=== PATIENT | male | born 1950 | race Caucasian/White ===

== ENCOUNTER 2017-06-29 08:23 | Day surgery (SDC) | payer BC ==
--- NOTE | 2017-06-27 16:47 | EKG ---
Test Date: 2017-06-27 Test Time: 16:29:41 [employer] Operator: VALENCIA MEASUREMENT RESULTS: Intervals: Rate: 54 CT: 156 QRSD: 98 QT: 396 QTc: 375 [place]: P: 25 CT: 156 QRS: -59 T: 50 INTERPRETIVE STATEMENTS: Sinus bradycardia Left axis deviation Abnormal ECG No previous ECG available for comparison Electronically Signed On 06-27-17 16:46:37 CDT by Young Valencia
[2017-06-27 18:13] LABS: BUN Blood Urea Nitrogen 16 mg/dL (6-20); Bicarbonate 32 mEq/L (21-31); Glucose Level 213 mg/dL (65-120); Potassium 4.4 mEq/L (3.6-5.0); Sodium Level 141 mEq/L (135-145)
[2017-06-29] MEDS ORDERED: Ringers Lactate 1,000 ML IV ONE (08:39)
[2017-06-29] MEDS ORDERED: CEFAZOLIN/SWI 1gm 1 GM/10 ML SYR ONE (08:39)
[2017-06-29] MEDS ORDERED: BUPIVACA 0.25%/EPI 0.0005%/PF 30 ML VIAL ONE (09:13)
[2017-06-29] MEDS ORDERED: PROPOFOL 200 MG/20 ML VIAL IV ONE ×2 (09:23→10:00)
[2017-06-29] MEDS ORDERED: MIDAZOLAM HCL 2 MG/2 ML INJ ONE (09:24)
[2017-06-29] MEDS ORDERED: LIDOCAINE 2% MPF 5 ML VIAL ONE (09:24)
[2017-06-29] MEDS ORDERED: FENTANYL CITR 100 MCG/2 ML ONE (09:24)
--- NOTE | 2017-06-29 10:45 | P.OP ---
Preoperative diagnosis: Temporal giant cell arteritis Postoperative diagnosis: Temporal giant cell arteritis Primary procedure: LEFT temporal artery biopsy Anesthesia: MAC + Local Estimated blood loss: <10cc Specimen: Temporal Artery Complications: None Transferred to: Recovery Room Condition: Good
--- NOTE | 2017-06-29 22:13 | OP ---
Date of Procedure: 06/29/2017 Surgeon: Kentrell Hahn MD, Preoperative Diagnosis: Temporal/giant cell arteritis. Postoperative Diagnosis: Temporal/giant cell arteritis. Procedure Performed: Left temporal artery biopsy. Anesthesia: MAC plus local with 0.25% Marcaine with epinephrine. Estimated Blood Loss: Less than 10 cc. Specimen: Left temporal artery. Complications: None. Disposition: Transferred to recovery room in good condition. Procedure In Detail: After informed consent was obtained, the patient was brought to the operating r oom, prepped and draped in the usual sterile fashion. After adequate anesthesia was achieved, the ar ea of the left temporal artery area was mapped with Doppler. Skin marking was made slightly into the hairline. An approximately 3.5 cm incision was made following the track of the temporal artery on t he left side. Dissection continued down to subcutaneous tissues. Skin flaps were performed to the t emporoparietal fascia. I dissected down using blunt dissection to expose the temporal artery. It wa s encircled completely after being skeletonized using Doppler to confirm position. There were no add itional accessory branches that needed to be ligated and therefore I encircled a portion of the tempo ral artery proximally and distally using a 3-0 silk tie. These segments were tied off ensuring adequ ate specimen length and after this was performed, I ligated the temporal artery using tenotomy scisso rs and sent the specimen for pathologic examination. I then irrigated the area copiously and then dr ied it up and after this was done, I inspected the area. No hemostatic maneuvers were required. I t hen closed the subcuticular layer using a single interrupted 3-0 Vicryl suture and closed the skin wi th a 4-0 Monocryl in a running fashion. Dermabond placed over the top. The patient tolerated the pr ocedure without evidence of complication and transferred to PACU in good condition. All counts were correct at the end of the case. RONEY/VINCE Voice ID: [id number] Report ID: [id number]
== END 2017-06-29 11:14 | disposition home or self-care (01) ==
LOC: OR 08:23
PROVIDERS: ATTEND Surgery
PROC: 03BT0ZX Excision of Left Temporal Artery, Open Approach, Diagnostic (ICD-10-PCS; principal; 2017-06-29 09:30)
DX: M31.6 Other giant cell arteritis (principal); I10 Essential (primary) hypertension; K21.9 Gastro-esophageal reflux disease without esophagitis; Z87.891 Personal history of nicotine dependence
CPT/HCPCS: 36415; 80048; 88305; 93005; J0690; J2250; J3010

== ENCOUNTER 2017-07-04 12:29 | Observation (INO) | payer BC, OTHER ==
[2017-07-04 13:58] LABS: Absolute Lymphocytes (CBC) 0.6 K/uL (0.7-4.9); Absolute Monocytes 0.3 K/uL (0.1-1.3); Absolute Neutrophil 7.8 K/uL (1.8-8.0); Basophils % 0.2 % (0-1.3); Hematocrit 38.1 % (39.6-49.0); Lymphocytes % 6.8 % (15.3-44.8); MCH 28.2 pg (27.0-35.0); MCV 85.5 fL (80-100); MPV 7.2 fL (7.6-11.3); Protime INR 1.4; RBC Red Blood Cell Count 4.46 M/uL (4.33-5.43)
[2017-07-04 14:06] LABS: Bicarbonate 30 mEq/L (21-31); Glucose Level 191 mg/dL (65-120); Potassium 4.3 mEq/L (3.6-5.0); Sodium Level 138 mEq/L (135-145)
[2017-07-04 14:07] LABS: BUN Blood Urea Nitrogen 10 mg/dL (6-20)
[2017-07-04 14:39] LABS: Blood Morphology Comment NOT SEEN (NOT SEEN); Platelet Estimate ADEQ
--- NOTE | 2017-07-04 15:07 | RAD REPORT ---
EXAM DESCRIPTION: CT - Thorax W/ Con - 07/04/2017 2:37 pm CLINICAL HISTORY: Hemoptysis COMPARISON: None. TECHNIQUE: Dynamically enhanced 5 mm thick images of the chest were obtained during administration o f 100 mL non-ionic IV contrast. All CT scans are performed using dose optimization technique as appropriate and may include automated exposure control or mA/KV adjustment according to patient size. FINDINGS: Extending inferiorly from the left hilum in the posteromedial left lower lobe there is a 4 .5 centimeter lobulated soft tissue mass. Primary lung malignancy is the most likely etiology. There is stranding that extends to the medial and posterior pleural surface. The mass displaces and partial ly encircles the inferior pulmonary vein. Small lymph nodes are seen in the left hilum. Small subcari nal lymph nodes seen as well. No other mass in the lung parenchyma. No bulky lymphadenopathy. No pleural thickening or pleural effu bryan. No pneumothorax. No chest wall mass or abnormal axillary lymphadenopathy. Aorta and pulmonary arterial tree enhance normally. No pericardial effusion. IMPRESSION: Approximately 4.5 centimeter lobulated soft tissue mass infrahilar left lower lobe. Primary lung malignancy is the most likely etiology. A few small subcarinal and left hilar lymph nodes are present nonspecific.
--- NOTE | 2017-07-04 15:38 | ER ---
Nurse's Notes [facility] Name: Linnette Styles Age: 67 yrs Sex: Male : 1950 Arrival Date: 07/04/2017 Time: 12:32 Bed 16 Private MD: Yvan Wayne Diagnosis: Hemoptysis-lung mass Presentation: 07/04 12:43 Presenting complaint: Patient states: coughed up a solid red blood clot about an hour iw ago, coughed up another small amount of blood within past hour, is on Pradaxa, has had cough with congestion and has been feeling like his voice has changed over past month and half, made appt with ENT. Transition of care: patient was not received from another setting of care. Onset of symptoms was July 04, 2017. Initial Sepsis Screen: Does the patient meet any 2 criteria? No. Patient's initial sepsis screen is negative. Does the patient have a suspected source of infection? No. Patient's initial sepsis screen is negative. Care prior to arrival: None. 12:43 Method Of Arrival: Ambulatory iw 12:43 Acuity: DEANGELO 3 iw Historical: - Allergies: 12:49 NKA; iw - Home Meds: 12:49 metoprolol tartrate 100 mg Oral tab 1 tab once daily [Active]; clonazepam 0.5 mg Oral iw tab as needed [Active]; omeprazole 20 mg Oral cpDR 1 cap once daily [Active]; Pradaxa 150 mg oral cap 1 cap 2 times per day [Active]; Vitamin B-12 1,000 mcg Oral tab [Active]; Fish Oil oral oral [Active]; magnesium oxide 250 mg Oral tab nightly [Active]; Vitamin C Oral daily [Active]; CoQ-10 oral oral [Active]; prednisone 20 mg Oral tab 1 tab 3 times per day [Active]; Trazodone Oral [Active]; - PMHx: 12:49 Atrial Fib; iw - PSHx: 12:49 temporal aretery biopsy; iw - Immunization history:: Adult Immunizations unknown. - Social history:: The patient lives at home, Smoking status: Patient/guardian denies using tobacco, the patient reports quitting approximately 10 years ago. Screenin:17 Abuse screen: Denies threats or abuse. Denies injuries from another. Nutritional ph screening: No deficits noted. Tuberculosis screening: No symptoms or risk factors identified. Fall Risk None identified. Assessment: 13:00 General: Appears in no apparent distress. comfortable, slender, well groomed, Behavior ph is calm, cooperative, appropriate for age, Denies fever, feeling ill. Pain: Denies pain. Neuro: Level of Consciousness is awake, alert, obeys commands, Oriented to person, place, time, situation. Cardiovascular: Capillary refill < 3 seconds Patient's skin is warm and dry. Respiratory: Reports states, " I felt like I had some phlegm in my throat so I coughed it up and when I did a big chunk of blood came up." Airway is patent Respiratory effort is even, unlabored, Respiratory pattern is regular, symmetrical, Denies cough, shortness of breath pain with respiration, pain with cough. GI: No signs and/or symptoms were reported involving the gastrointestinal system. Derm: Skin is intact, is healthy with good turgor, Skin is pink, warm \\T\\ dry. Musculoskeletal: Circulation, motion, and sensation intact. Range of motion: intact in all extremities. 14:30 Reassessment: Patient appears in no apparent distress at this time. Patient and/or ph family updated on plan of care and expected duration. Pain level reassessed. Pt resting quietly, awaiting lab results and CT scan. 16:16 Reassessment: Patient appears in no apparent distress at this time. Patient and/or ph family updated on plan of care and expected duration. Pain level reassessed. Patient is alert, oriented x 3, equal unlabored respirations, skin warm/dry/pink. Dr Valdez at bedside to speak with pt. 17:00 Reassessment: Patient appears in no apparent distress at this time. Patient and/or ph family updated on plan of care and expected duration. Pain level reassessed. Patient is alert, oriented x 3, equal unlabored respirations, skin warm/dry/pink. Pt sitting in bed, eating dinner, at bedside, awaiting room assignment. 18:03 Reassessment: Patient appears in no apparent distress at this time. Patient and/or ph family updated on plan of care and expected duration. Pain level reassessed. Patient is alert, oriented x 3, equal unlabored respirations, skin warm/dry/pink. Report called to Sangita FRIAS, pt waiting to be taken to floor. Vital Signs: 12:49 BP 149 / 85; Pulse 55; Resp 16; Temp 98.4; Pulse Ox 97% on R/A; Weight 97.52 kg; Height iw 6 ft. 0 in. (182.88 cm); Pain 0/10; 14:30 BP 138 / 82; Pulse 54; Resp 18; Pulse Ox 98% on R/A; Pain 0/10; ph 15:30 BP 142 / 83; Pulse 55; Resp 18; Pulse Ox 98% on R/A; ph 16:59 BP 147 / 85; Pulse 56; Resp 18; Temp 98.0; Pulse Ox 96% on R/A; ph 17:30 BP 142 / 78; Pulse 56; Resp 16; Temp 97.8; Pulse Ox 99% on R/A; ph 12:49 Body Mass Index 29.16 (97.52 kg, 182.88 cm) iw ED Course: 12:32 Patient arrived in ED. mr 12:32 Yvan Wayne MD is Private Physician. mr 12:45 Triage completed. iw 12:49 Arm band placed on. iw 12:55 Fransico Bailey MD is Attending Physician. gs 13:48 Initial lab(s) drawn, by fl, sent to lab. Inserted saline lock: 20 gauge in left dh3 antecubital area, using aseptic technique. Blood collected. 14:[address] via wheelchair. vm2 14:36 CT completed. Patient tolerated procedure well. Patient moved back from CT. vm2 14:37 CT Chest W/ Con In Process Unspecified. EDMS 14:57 Chery Mae RN is Primary Nurse. ph 15:36 Quan Varela MD is Hospitalizing Provider. gs 16:17 Patient has correct armband on for positive identification. Bed in low position. Call ph light in reach. Side rails up X 1. Pulse ox on. NIBP on. Warm blanket given. 18:14 No provider procedures requiring assistance completed. Patient admitted, IV remains in ph place. 19:31 Primary Nurse role handed off by Chery Mae, RODRIGUEZ ph Administered Medications: 17:15 Drug: Ativan 0.5 mg Route: PO; ph 19:40 Follow up: Response: No adverse reaction ph Outcome: 15:38 Decision to Hospitalize by Provider. gs 18:14 Patient left the ED. ph 18:14 Admitted to Med/surg accompanied by tech, family with patient, via wheelchair, with ph chart, Report called to Sangita FRIAS 18:14 Condition: stable 18:14 Instructed on the need for admit. 19:40 Patient left the ED. ph Signatures: Dispatcher [employer] Brooke Hernandez Irene, RN RN iw Hall, Patricia, RN RN ph McGuire, Victoria [facility] Ana Gomez 3 Fransico Bailey MD MD
--- NOTE | 2017-07-04 15:38 | EDPHYS ---
Physician Documentation [facility] Name: Linnette Styles Age: 67 yrs Sex: Male : 1950 Arrival Date: 07/04/2017 Time: 12:32 Bed 16 Private MD: Yvan Wayne ED Physician Fransico Bailey HPI: 07/04 15:34 This 67 yrs old Male presents to ER via Ambulatory with complaints of Spit up gs blood. 15:34 Onset: The symptoms/episode began/occurred acutely, just prior to arrival. Severity of gs symptoms: At their worst the symptoms were moderate, in the emergency department the symptoms have resolved. Modifying factors: The symptoms are alleviated by nothing, the symptoms are aggravated by nothing. Associated signs and symptoms: Pertinent negatives: fever. The patient has not experienced similar symptoms in the past. The patient has not recently seen a physician. Historical: - Allergies: 12:49 NKA; iw - Home Meds: 12:49 metoprolol tartrate 100 mg Oral tab 1 tab once daily [Active]; clonazepam 0.5 mg Oral iw tab as needed [Active]; omeprazole 20 mg Oral cpDR 1 cap once daily [Active]; Pradaxa 150 mg oral cap 1 cap 2 times per day [Active]; Vitamin B-12 1,000 mcg Oral tab [Active]; Fish Oil oral oral [Active]; magnesium oxide 250 mg Oral tab nightly [Active]; Vitamin C Oral daily [Active]; CoQ-10 oral oral [Active]; prednisone 20 mg Oral tab 1 tab 3 times per day [Active]; Trazodone Oral [Active]; - PMHx: 12:49 Atrial Fib; iw - PSHx: 12:49 temporal aretery biopsy; iw - Immunization history:: Adult Immunizations unknown. - Social history:: The patient lives at home, Smoking status: Patient/guardian denies using tobacco, the patient reports quitting approximately 10 years ago. ROS: 15:34 Cardiovascular: Negative for chest pain. gs 15:34 Respiratory: Negative for pleurisy, shortness of breath. 15:34 All other systems are negative. Exam: 15:34 Head/Face: Normocephalic, atraumatic. Eyes: Pupils equal round and reactive to light, gs extra-ocular motions intact. Lids and lashes normal. Conjunctiva and sclera are non-icteric and not injected. Cornea within normal limits. Periorbital areas with no swelling, redness, or edema. ENT: Nares patent. No nasal discharge, no septal abnormalities noted. Tympanic membranes are normal and external auditory canals are clear. Oropharynx with no redness, swelling, or masses, exudates, or evidence of obstruction, uvula midline. Mucous membranes moist. Neck: Trachea midline, no thyromegaly or masses palpated, and no cervical lymphadenopathy. Supple, full range of motion without nuchal rigidity, or vertebral point tenderness. No Meningismus. Chest/axilla: Normal chest wall appearance and motion. Nontender with no deformity. No lesions are appreciated. Cardiovascular: Regular rate and rhythm with a normal S1 and S2. No gallops, murmurs, or rubs. Normal PMI, no JVD. No pulse deficits. Respiratory: Lungs have equal breath sounds bilaterally, clear to auscultation and percussion. No rales, rhonchi or wheezes noted. No increased work of breathing, no retractions or nasal flaring. Abdomen/GI: Soft, non-tender, with normal bowel sounds. No distension or tympany. No guarding or rebound. No evidence of tenderness throughout. Back: No spinal tenderness. No costovertebral tenderness. Full range of motion. Skin: Warm, dry with normal turgor. Normal color with no rashes, no lesions, and no evidence of cellulitis. MS/ Extremity: Pulses equal, no cyanosis. Neurovascular intact. Full, normal range of motion. Neuro: Awake and alert, GCS 15, oriented to person, place, time, and situation. Cranial nerves II-XII grossly intact. Motor strength 5/5 in all extremities. Sensory grossly intact. Cerebellar exam normal. Normal gait. 15:34 Constitutional: The patient appears alert, awake. Vital Signs: 12:49 BP 149 / 85; Pulse 55; Resp 16; Temp 98.4; Pulse Ox 97% on R/A; Weight 97.52 kg; Height iw 6 ft. 0 in. (182.88 cm); Pain 0/10; 14:30 BP 138 / 82; Pulse 54; Resp 18; Pulse Ox 98% on R/A; Pain 0/10; ph 15:30 BP 142 / 83; Pulse 55; Resp 18; Pulse Ox 98% on R/A; ph 16:59 BP 147 / 85; Pulse 56; Resp 18; Temp 98.0; Pulse Ox 96% on R/A; ph 17:30 BP 142 / 78; Pulse 56; Resp 16; Temp 97.8; Pulse Ox 99% on R/A; ph 12:49 Body Mass Index 29.16 (97.52 kg, 182.88 cm) iw MDM: 13:13 Patient medically screened. 15:34 Differential Diagnosis: Pneumonia Other mass, pe, angioma. Data reviewed: vital signs, nurses notes. Response to treatment: the patient's symptoms have markedly improved after treatment, and as a result, I will admit patient. 07/04 13:14 Order name: CBC with Diff; Complete Time: 15:10 07/04 13:14 Order name: Basic Metabolic Panel; Complete Time: 14:17 07/04 13:14 Order name: Protime (+inr); Complete Time: 14:17 07/04 13:14 Order name: CT Chest W/ Con; Complete Time: 15:10 07/04 14:39 Order name: Manual Differential; Complete Time: 15:10 EDMS 07/04 15:44 Order name: CONS Physician Consult EDMD Administered Medications: 17:15 Drug: Ativan 0.5 mg Route: PO; ph 19:40 Follow up: Response: No adverse reaction ph Disposition: 07/04/17 15:38 Hospitalization ordered by Quan Varela for Observation. Preliminary diagnosis is Hemoptysis - lung mass. - Bed requested for Telemetry/MedSurg (observation). - Status is Observation. ph - Condition is Stable. - Problem is new. - Symptoms are resolved. UTI on Admission? No Signatures: Dispatcher [employer] EDMS Tami Sal Irene, RODRIGUEZ FRIAS Chery Mae RN RN BaileyFransico MD MD
--- NOTE | 2017-07-04 16:37 | P.HP ---
Certification for Inpatient Patient admitted to: Observation With expected LOS: <2 Midnights Practitioner: I am a practitioner with admitting privileges, knowledge of patient current condition, hospital course, and medical plan of care. Services: Services provided to patient in accordance with Admission requirements found in Title 42 Section 412.3 of the Code of Federal Regulations Patient History Date of Service: 07/04/17 Reason for admission: hemoptisis History of Present Illness: Mr Styles is a 67 years old male former smoker, quit about 9 years ago, who 1 month ago he start noticing that the tone of his voice is different, more john. He also mention that lost significant amount of weight in the last 5 month, unintentional, appetite is decreased as well. Today he start coughing and had like quarter of blood coming out mixing with phlegms. No history of fever or chills. In ER CT chest remarkable for a 4.5 centimeter lobulated soft tissue mass infrahilar left lower lobe. The patient is on pradaxa due to A.Fib. He recently had a temporal artery biopsy, report is still pending. WBC WNL. Allergies No Known Allergies Allergy (Verified 06/27/17 16:02) Home Medications: Ascorbic Acid [Vitamin C] 1,000 mg PO DAILY 06/27/17 Clonazepam [Klonopin] 0.5 mg PO PRN PRN 06/27/17 Cyanocobalamin [Vitamin B-12] 1,000 mcg PO DAILY 06/27/17 Dabigatran Etexilate Mesylate [Pradaxa] 150 mg PO BID 06/27/17 Ferrous Fumarate/Vit Bcomp&C [Super B-Complex Caplet] 1 each PO DAILY 06/27/17 Garlic 500 mg PO DAILY 06/27/17 Irbesartan [Avapro] 300 mg PO DAILY 06/27/17 Magnesium Oxide [Magnesium] 500 mg PO DAILY 06/27/17 Metoprolol Tartrate 100 mg PO [id number] 06/27/17 [place]-3S/Dha/Epa/Fish Oil [Fish Oil 1,200 mg Softgel] 1 each PO DAILY 06/27/17 Omeprazole 20 mg PO DAILY 06/27/17 Potassium Gluconate [Potassium] 600 mg PO DAILY 06/27/17 Prednisone [Deltasone] 60 mg PO 1X 06/27/17 Ubidecarenone/Vitamin E Mixed [Jhb76-Kkg E 100 mg-10 Unit Sfg] 1 each PO DAILY 06/27/17 - Past Medical/Surgical History -: A.Fib -: HTN -: temporal artery biopsy - Family History Family History: Reviewed- Non-Contributory - Social History Smoking Status: Former smoker CD- Drugs: No Place of Residence: Home Review of Systems 10-point ROS is otherwise unremarkable Physical Examination - Physical Exam General: Alert, In no apparent distress HEENT: Atraumatic, PERRLA, Mucous membr. moist/pink, EOMI, Sclerae nonicteric Neck: Supple, 2+ carotid pulse no bruit, No LAD, Without JVD or thyroid abnormality Respiratory: Clear to auscultation bilaterally, Diminished (bilaterally) Cardiovascular: Regular rate/rhythm, Normal S1 S2 Gastrointestinal: Normal bowel sounds, No tenderness Musculoskeletal: No tenderness Integumentary: No rashes Neurological: Normal speech, Normal strength at 5/5 x4 extr, Normal tone, Normal affect Lymphatics: No axilla or inguinal lymphadenopathy - Studies Laboratory Data (last 24 hrs) 07/04/17 13:43: PT 16.6 H, INR 1.40 07/04/17 13:43: Sodium 138, Potassium 4.3, BUN 10, Creatinine 0.64, Glucose 191 H 07/04/17 13:43: WBC 8.7, Hgb 12.6 L, Hct 38.1 L, Plt Count 191 Assessment and Plan - Problems (Diagnosis) (1) Pulmonary mass Current Visit: Yes Status: Acute (2) A-fib Current Visit: Yes Status: Acute Qualifiers: Atrial fibrillation type: chronic Qualified Code(s): I48.2 - Chronic atrial fibrillation (3) HTN (hypertension) Current Visit: Yes Status: Acute Qualifiers: Hypertension type: essential hypertension Qualified Code(s): I10 - Essential (primary) hypertension - Plan Mr Styles will be admitted to the hospital due to hemoptosis. CT chest shows a pulmonary mass on the left upper lobe. Dr Garcia will do [place] tomorrow. Will hold pradaxa, keep NPO. Will resume metoprolol once verified the dose. - Advance Directives Does patient have a Living Will: No Does patient have a Durable POA for Healthcare: No - Code Status/Comfort Care Code Status Assessed: Yes Code Status: Full Code
[2017-07-04] MEDS ORDERED: LORAZEPAM 0.5 MG TABLET ONE (16:45)
[2017-07-04] MEDS ORDERED: ONDANSETRON 4 MG/2 ML VIAL IV PRN (18:08)
[2017-07-04] MEDS: NA CHLORIDE 0.9% 1,000 ML IV SCH (18:22)
[2017-07-04] MEDS: clonazePAM 0.5 MG TAB PO PRN (22:04)
[2017-07-05] MEDS: NA CHLORIDE 0.9% 1,000 ML IV SCH ×3 (04:33→23:31)
[2017-07-05 05:46] LABS: Protime INR 1.3
[2017-07-05 05:46] LABS: Absolute Lymphocytes (CBC) 2.5 K/uL (0.7-4.9); Absolute Monocytes 0.8 K/uL (0.1-1.3); Absolute Neutrophil 6.6 K/uL (1.8-8.0); Basophils % 0.5 % (0-1.3); Eosinophils % 0.2 % (0-4.4); Hematocrit 36.5 % (39.6-49.0); Lymphocytes % 24.7 % (15.3-44.8); MCH 28.6 pg (27.0-35.0); MCV 86.1 fL (80-100); MPV 7.3 fL (7.6-11.3); Monocytes % 8.2 % (3.3-12.3); RBC Red Blood Cell Count 4.23 M/uL (4.33-5.43)
[2017-07-05 06:26] LABS: BUN Blood Urea Nitrogen 14 mg/dL (6-20); Bicarbonate 31 mEq/L (21-31); Glucose Level 138 mg/dL (65-120); Sodium Level 142 mEq/L (135-145)
[2017-07-05 06:38] LABS: Magnesium 1.8 mg/dL (1.8-2.5)
[2017-07-05] MEDS ORDERED: MAGNESIUM SULFATE 1 gm IVPB 1 GM/100 ML BAG IV ONE (07:30)
--- NOTE | 2017-07-05 08:12 | P.CNS ---
Date of Consult: 07/05/17 Chief Complaint: Hemoptysis History of Present Illness: Patient is 67 years of age a he has been having problems with voice for the past 3 months becoming raspy he was scheduled to see a physician the past 2 weeks he has been coughing up some sputum yesterday noticed some hemoptysis patient had some weight loss and was admitted to the hospital with a left lower lobe lung mass he is a former smoker patient has a history of AFib and has been off his Pradaxa recently had a temporal artery biopsy results are pending is poor on large doses of steroids denies any shortness of breath Allergies No Known Allergies Allergy (Verified 07/04/17 19:58) Home Medications: Ascorbic Acid [Vitamin C] 1,000 mg PO DAILY 07/04/17 Clonazepam [Klonopin] 0.5 mg PO BID PRN 07/04/17 Cyanocobalamin [Vitamin B-12] 1,000 mcg PO DAILY 07/04/17 Dabigatran Etexilate Mesylate [Pradaxa] 150 mg PO BID 07/04/17 Fish Oil/Dha/Epa [Fish Oil 1,200 mg Fish Oil] 1 each PO DAILY 07/04/17 Irbesartan [Avapro] 300 mg PO DAILY 07/04/17 Magnesium Oxide [Magnesium] 250 mg PO BEDTIME 07/04/17 Magnesium Oxide [Magnesium] 500 mg PO DAILY 07/04/17 Metoprolol Succinate [Toprol Xl] 100 mg PO DAILY 07/04/17 Omeprazole 20 mg PO ACB 07/04/17 Potassium Gluconate [Potassium] 600 mg PO DAILY 07/04/17 Prednisone [Deltasone] 60 mg PO DAILY 07/04/17 - Past Medical/Surgical History Diabetic: No -: A.Fib -: HTN -: temporal artery biopsy - Family History Mother Medical History: Heart disease, Stroke Father Medical History: Stroke - Social History Alcohol use: No CD- Drugs: No Caffeine use: Yes Place of Residence: Home Review of Systems 10-point ROS is otherwise unremarkable Physical Examination Temp Pulse Resp BP Pulse Ox 98.5 F 70 18 134/68 96 07/05/17 04:00 07/05/17 04:00 07/05/17 04:00 07/05/17 04:00 07/05/17 04:00 General: Alert, Oriented x3, Cachectic Neck: Supple Respiratory: Clear to auscultation bilaterally Cardiovascular: No edema, Regular rate/rhythm Gastrointestinal: Normal bowel sounds, Soft and benign Laboratory Data (last 24 hrs) 07/04/17 13:43: PT 16.6 H, INR 1.40 07/04/17 13:43: Sodium 138, Potassium 4.3, BUN 10, Creatinine 0.64, Glucose 191 H 07/04/17 13:43: WBC 8.7, Hgb 12.6 L, Hct 38.1 L, Plt Count 191 - Problems (1) Lung cancer Current Visit: Yes Status: Acute Plan: Patient is 67 years of age admitted with a 3 week history of change in his voice 2 week history of productive sputum some weight loss in his admission was precipitated by hemoptysis he has a large left lower lobe lung mass almost suddenly this is lung cancer will proceed to bronchoscopy tomorrow I have discussed with the patient the risks and benefit include bleeding infection and lung collapse and he agrees he has been 24 hr since she has been off Pradaxa will wait another 24 hr to plan for the procedure tomorrow he is aware of the all the risks laboratory data all reviewed is sinus bradycardia Qualifiers: Laterality: left
[2017-07-05] MEDS: predniSONE 20 MG TAB PO SCH (09:06)
--- NOTE | 2017-07-05 10:33 | RAD REPORT ---
EXAM DESCRIPTION: MRI - Brain W/Wo Cont - 07/05/2017 9:53 am CLINICAL HISTORY: Lung carcinoma. COMPARISON: None. TECHNIQUE: Multi-sequence, multiplanar MR imaging of the brain was performed with contrast. FINDINGS: No intracranial hemorrhage, hydrocephalus, extra-axial fluid collection or acute infarctio n.Moderate focal and confluent T2/FLAIR hyperintensity in the periventricular and deep white matter i s present compatible with chronic microvascular ischemic changes. No edema or shift of midline struct ures. No intracranial mass. DWI is negative for acute CVA. The midline structures are normally formed. Mastoid air cells and paranasal sinuses are clear. Post-contrast images show no abnormal enhancement to suggest tumor or infection. IMPRESSION: No evidence of intracranial metastatic disease.
--- NOTE | 2017-07-05 14:26 | P.PN ---
Subjective Date of Service: 07/05/17 Chief Complaint: Hemoptysis the patient feels well, less cough, no SOB, no chest pain. Physical Examination - Vital Signs Temperature: 97.6 F Blood Pressure: 110/62 Pulse: 56 Respirations: 16 Pulse Ox (%): 93 - Physical Exam General: Alert, In no apparent distress HEENT: Atraumatic, PERRLA, EOMI Neck: Supple, JVD not distended Respiratory: Normal air movement, Rhonchi/gurgles (scattered left rhonchi) Cardiovascular: Regular rate/rhythm, Normal S1 S2 Gastrointestinal: Normal bowel sounds, No tenderness Musculoskeletal: No tenderness Integumentary: No rashes Neurological: Normal speech, Normal tone, Normal affect - Studies Laboratory Data (last 24 hrs) 07/04/17 13:43: WBC 8.7, Hgb 12.6 L, Hct 38.1 L, Plt Count 191 Medications List Reviewed: Yes Assessment And Plan - Current Problems (Diagnosis) (1) Pulmonary mass Onset Date: 07/05/17 Current Visit: Yes Status: Acute (2) A-fib Onset Date: 07/05/17 Current Visit: Yes Status: Acute Qualifiers: Atrial fibrillation type: chronic Qualified Code(s): I48.2 - Chronic atrial fibrillation (3) HTN (hypertension) Onset Date: 07/05/17 Current Visit: Yes Status: Acute Qualifiers: Hypertension type: essential hypertension Qualified Code(s): I10 - Essential (primary) hypertension - Plan plan: Mr Styles's bronch was rescheduled for tomorrow. Dr Garcia wants to await 24 HR of pradaxa discontinuation before to do procedure. He remain hemodynamically stable.
[2017-07-05] MEDS: clonazePAM 0.5 MG TAB PO PRN (20:28)
[2017-07-06] MEDS: NA CHLORIDE 0.9% 1,000 ML IV SCH (05:00)
[2017-07-06 06:15] LABS: Absolute Lymphocytes (CBC) 2.5 K/uL (0.7-4.9); Absolute Monocytes 0.7 K/uL (0.1-1.3); Absolute Neutrophil 7.2 K/uL (1.8-8.0); Basophils % 0.2 % (0-1.3); Eosinophils % 0.4 % (0-4.4); Hematocrit 36.8 % (39.6-49.0); MCH 28.3 pg (27.0-35.0); MCV 85.6 fL (80-100); MPV 7.1 fL (7.6-11.3); Monocytes % 6.9 % (3.3-12.3); RBC Red Blood Cell Count 4.29 M/uL (4.33-5.43)
[2017-07-06 06:37] LABS: BUN Blood Urea Nitrogen 11 mg/dL (6-20); Bicarbonate 29 mEq/L (21-31); Glucose Level 134 mg/dL (65-120); Magnesium 1.9 mg/dL (1.8-2.5); Potassium 3.6 mEq/L (3.6-5.0); Sodium Level 137 mEq/L (135-145)
[2017-07-06] MEDS ORDERED: Phenylephrine HCl 10 MG/ML 1 ML VIAL ONE (06:53)
[2017-07-06] MEDS ORDERED: GLYCOPYRROLATE 0.2 MG/ML SYR ONE (06:54)
[2017-07-06] MEDS ORDERED: LIDOCAINE VISCOUS 2% SOLN 15 ML UDC ONE (06:54)
[2017-07-06] MEDS ORDERED: LIDOCAINE 4% TOP SOLUTION ONE (06:54)
[2017-07-06] MEDS ORDERED: LIDOCAINE 1% MPF 5 ML VIAL ONE ×2 (06:55→07:55)
[2017-07-06] MEDS ORDERED: Ringers Lactate 1,000 ML IV ONE (07:01)
[2017-07-06] MEDS ORDERED: POTASSIUM CL SA 10 MEQ TAB PO ONE (07:35)
[2017-07-06] MEDS ORDERED: PROPOFOL 200 MG/20 ML VIAL IV ONE (07:54)
[2017-07-06] MEDS ORDERED: MIDAZOLAM HCL 2 MG/2 ML INJ ONE (07:55)
[2017-07-06] MEDS ORDERED: FENTANYL CITR 100 MCG/2 ML ONE (07:55)
--- NOTE | 2017-07-06 08:22 | P.OP ---
Date of Service: 07/06/17 (Bronchoscopy with endobronchial biopsies why brushing and BAL) Findings and Operative Technique Patient is 67 years of age quit smoking 10 years ago admitted with hemoptysis and lung mass hence the reason for bronchoscopy Narrative report after obtaining informed consent fthe patient he was premedicated by anesthesia Findings normal vocal cords normal trachea normal varun rom normal right-sided bronchial anatomy on the left side left upper lobe was normal he did have a mass in the left lower lobe endobronchial friable lesion Biopsies and wire brushings were done patient tolerated the procedure very well did not experience any hemodynamic disturbances postoperative chest x-ray has been ordered patient to be discharged home and then we had referred to Oncology
--- NOTE | 2017-07-06 08:40 | RAD REPORT ---
EXAM DESCRIPTION: RAD - Fluoroscopy <1 Hour - 07/06/2017 8:32 am FINDINGS: Left chest fluoroscopy. Portable C-arm views were obtained during fluoroscopic assisted left lung field bronchoscopy. No susp icious or unexpected finding.
--- NOTE | 2017-07-06 09:50 | RAD REPORT ---
EXAM DESCRIPTION: RAD - Chest Single View - 07/06/2017 9:34 am CLINICAL HISTORY: Post bronchoscopy chest film COMPARISON: CT study July 04 TECHNIQUE: AP portable chest image was obtained in expiration at 0922 hours . FINDINGS: No pneumothorax. No hemorrhage or other acute lung parenchymal process. Known mass density in the left base is seen, mostly obscured by the heart. Heart size is prominent. No acute failure or volume overload. No pleural fluid collection. IMPRESSION: No post bronchoscopy pneumothorax.
[2017-07-06] MEDS: predniSONE 20 MG TAB PO SCH (10:17)
--- NOTE | 2017-07-06 11:21 | P.DS ---
Admission Date: 07/04/17 Discharge Date: 07/06/17 Disposition: ROUTINE DISCHARGE Discharge Condition: FAIR Reason for Admission: Hemoptysis - Problems (1) Pulmonary mass Onset Date: 07/05/17 Current Visit: Yes Status: Acute (2) A-fib Onset Date: 07/05/17 Current Visit: Yes Status: Acute Qualifiers: Atrial fibrillation type: chronic Qualified Code(s): I48.2 - Chronic atrial fibrillation (3) HTN (hypertension) Onset Date: 07/05/17 Current Visit: Yes Status: Acute Qualifiers: Hypertension type: essential hypertension Qualified Code(s): I10 - Essential (primary) hypertension Brief History of Present Illness: Mr Styles is a 67 years old male former smoker, quit about 9 years ago, who 1 month ago he start noticing that the tone of his voice is different, more john. He also mention that lost significant amount of weight in the last 5 month, unintentional, appetite is decreased as well. Today he start coughing and had like quarter of blood coming out mixing with phlegms. No history of fever or chills. In ER CT chest remarkable for a 4.5 centimeter lobulated soft tissue mass infrahilar left lower lobe. The patient is on pradaxa due to A.Fib. He recently had a temporal artery biopsy, report is still pending. WBC WNL. Hospital Course: During his stay in the hospital he remain hemodynamically stable. Pradaxa was discontinued. His hemoptisis was improving then. Today, he had a bronch done. cultures and cytology from bronchial lavage are pending, and need close follow up. Dr Garcia will see the patient along with his PCP, in about 1 week. The patient is stable to be discharge home today. His previous temporal artery biopsy, was negative for vasculitis. I gave a prescription for a tapering dose of prednisone until discontinue. Vital Signs/Physical Exam: Temp Pulse Resp BP Pulse Ox 97.0 F 61 18 119/62 97 07/06/17 09:47 07/06/17 09:47 07/06/17 09:47 07/06/17 09:47 07/06/17 04:00 General: Alert, In no apparent distress HEENT: Atraumatic, PERRLA, EOMI Neck: Supple, JVD not distended Respiratory: Clear to auscultation bilaterally, Normal air movement Cardiovascular: Regular rate/rhythm, Normal S1 S2 Gastrointestinal: Normal bowel sounds, No tenderness Musculoskeletal: No tenderness Integumentary: No rashes Neurological: Normal speech, Normal tone, Normal affect Lymphatics: No axilla or inguinal lymphadenopathy Laboratory Data at Discharge: WBC 10.5 K/uL (4.3-10.9) 07/06/17 05:36 Hgb 12.1 g/dL (13.6-17.9) L 07/06/17 05:36 Hct 36.8 % (39.6-49.0) L 07/06/17 05:36 Plt Count 180 K/uL (152-406) 07/06/17 05:36 PT 15.4 SECONDS (9.5-12.5) H 07/05/17 05:21 INR 1.30 07/05/17 05:21 Sodium 137 mEq/L (135-145) 07/06/17 05:36 Potassium 3.6 mEq/L (3.6-5.0) 07/06/17 05:36 BUN 11 mg/dL (6-20) 07/06/17 05:36 Creatinine 0.70 mg/dL (0.61-1.24) 07/06/17 05:36 Glucose 134 mg/dL (65-120) H 07/06/17 05:36 Magnesium 1.9 mg/dL (1.8-2.5) 07/06/17 05:36 Home Medications: Ascorbic Acid [Vitamin C] 1,000 mg PO DAILY 07/04/17 Clonazepam [Klonopin*] 0.5 mg PO BID PRN 07/04/17 Cyanocobalamin [Vitamin B-12*] 1,000 mcg PO DAILY 07/04/17 Dabigatran Etexilate Mesylate [Pradaxa*] 150 mg PO BID 07/04/17 Fish Oil/Dha/Epa [Fish Oil 1,200 mg Fish Oil] 1 each PO DAILY 07/04/17 Irbesartan [Avapro] 300 mg PO DAILY 07/04/17 Magnesium Oxide [Magnesium] 250 mg PO BEDTIME 07/04/17 Magnesium Oxide [Magnesium] 500 mg PO DAILY 07/04/17 Metoprolol Succinate [Toprol Xl] 100 mg PO DAILY 07/04/17 Omeprazole 20 mg PO ACB 07/04/17 Potassium Gluconate [Potassium] 600 mg PO DAILY 07/04/17 Prednisone [Deltasone*] 10 mg PO DAILY #21 tab 07/06/17 New Medications: Prednisone [Deltasone*] 10 mg PO DAILY #21 tab Patient Discharge Instructions: Patient to start taking his dad vague at ran as from tomorrow I will contact him with the results of the biopsy patient to contact my office if she experiences any other worsening symptoms he will cough up some blood for the next couple of days the call my office if he develops any fever chills chest pain or worsening shortness of breath Diet: Regular Activity: Ad han Time spent managing pt's care (in minutes): 40
== END 2017-07-06 11:56 | disposition home or self-care (01) ==
LOC: ER 12:29 → ERHOLD 15:42 → 4TH 18:01
PROVIDERS: ADMIT Internal Medicine; ATTEND Internal Medicine
PROC: 0BDB8ZX Extraction of Left Lower Lobe Bronchus, Via Natural or Artificial Opening Endoscopic, Diagnostic (ICD-10-PCS; 2017-07-06)
PROC: 0B9J8ZX Drainage of Left Lower Lung Lobe, Via Natural or Artificial Opening Endoscopic, Diagnostic (ICD-10-PCS; 2017-07-06)
PROC: 0BBB8ZX Excision of Left Lower Lobe Bronchus, Via Natural or Artificial Opening Endoscopic, Diagnostic (ICD-10-PCS; principal; 2017-07-06 08:00)
DX: C34.32 Malignant neoplasm of lower lobe, left bronchus or lung (principal); R04.2 Hemoptysis; I48.91 Unspecified atrial fibrillation; I10 Essential (primary) hypertension; Z79.01 Long term (current) use of anticoagulants; Z87.891 Personal history of nicotine dependence
CPT/HCPCS: 36415; 70553; 71045; 71260; 76000; 80048; 83735; 85025; 85610; 87015; 87070; 87077; 87102; 87116; 87186; 87206; 88108; 88160; 88305; 99285; A9577; G0378; J2250; J2370; J3010; J3475; J7030; J7512; Q9967

== ENCOUNTER 2017-08-20 19:55 | Emergency (ER) | payer BC, OTHER ==
[2017-08-20 21:14] LABS: Absolute Lymphocytes (CBC) 1.5 K/uL (0.7-4.9); Absolute Monocytes 0.7 K/uL (0.1-1.3); Absolute Neutrophil 5.5 K/uL (1.8-8.0); Basophils % 0.7 % (0-1.3); Eosinophils % 1.6 % (0-4.4); Hematocrit 30.7 % (39.6-49.0); MCH 28.8 pg (27.0-35.0); MCV 84.9 fL (80-100); MPV 6.7 fL (7.6-11.3); Monocytes % 8.5 % (3.3-12.3); RBC Red Blood Cell Count 3.62 M/uL (4.33-5.43)
[2017-08-20 21:19] LABS: Protime INR 1.34
[2017-08-20 21:32] LABS: Bicarbonate 31 mEq/L (21-31); Glucose Level 151 mg/dL (65-120); Potassium 4.1 mEq/L (3.6-5.0); Sodium Level 141 mEq/L (135-145)
[2017-08-20 21:33] LABS: BUN Blood Urea Nitrogen 14 mg/dL (6-20)
[2017-08-20] MEDS ORDERED: CIPROFLOXACIN 400mg IV 400 MG/200 ML BAG IV ONE (22:36)
--- NOTE | 2017-08-20 22:37 | ER ---
Nurse's Notes [facility] Name: Linnette Styles Age: 67 yrs Sex: Male : 1950 Arrival Date: 08/20/2017 Time: 19:56 Bed 24 Private MD: Cayden Wanye Diagnosis: Hematuria, unspecified Presentation: 08/20 19:58 Presenting complaint: Patient states: He had surgery 08/12/17 for lung cancer during which a catheter was placed. Patient reports they had trouble placing the catheter and he was having blood in his urine, so they left the catheter in to allow the urethra to heal. It has been intermittently bleeding, but now it has been bleeding constantly for the past 2 hours. Cayden blood noted in catheter bag and tubing. Patient reports that his bladder feels full. Transition of care: patient was not received from another setting of care. Onset of symptoms was August 20, 2017 at 18:00. Risk Assessment: Do you want to hurt yourself or someone else? Patient reports no desire to harm self or others. Initial Sepsis Screen: Does the patient meet any 2 criteria? No. Patient's initial sepsis screen is negative. Does the patient have a suspected source of infection? No. Patient's initial sepsis screen is negative. Care prior to arrival: None. 19:58 Method Of Arrival: Ambulatory 19:58 Acuity: DEANGELO 3 aj1 Triage Assessment: 20:09 General: Appears in no apparent distress. uncomfortable, Behavior is calm, cooperative, aj1 appropriate for age. Pain: Complains of pain in left mid back Pain does not radiate. Pain currently is 5 out of 10 on a pain scale. Quality of pain is described as aching. Historical: - Allergies: 20:09 NKA; aj1 - Home Meds: 20:09 clonazepam 0.5 mg Oral tab as needed [Active]; CoQ-10 Oral [Active]; Fish Oil Oral aj1 [Active]; magnesium oxide 250 mg Oral tab nightly [Active]; metoprolol tartrate 100 mg Oral tab 1 tab once daily [Active]; omeprazole 20 mg Oral cpDR 1 cap once daily [Active]; Pradaxa 150 mg Oral cap 1 cap 2 times per day [Active]; prednisone 20 mg Oral tab 1 tab 3 times per day [Active]; Vitamin B-12 1,000 mcg Oral tab [Active]; Vitamin C Oral daily [Active]; gabapentin 300 mg oral cap 1 cap 3 times per day [Active]; celecoxib 200 mg Oral cap 1 cap 2 times per day [Active]; tramadol 50 mg Oral tab 1 tab every 6 hours [Active]; - PMHx: 20:09 Atrial Fib; lung cancer; aj1 - PSHx: 20:09 lobectomy- lower left lobe 08/12/2017; aj1 - Immunization history:: Adult Immunizations up to date. - Social history:: Smoking status: Patient/guardian denies using tobacco. - Ebola Screening: : Patient denies travel to an Ebola-affected area in the 21 days before illness onset. - Family history:: not pertinent. - Hospitalizations: : No recent hospitalization is reported. Screenin:02 Abuse screen: Denies threats or abuse. Denies injuries from another. Nutritional kr2 screening: No deficits noted. Tuberculosis screening: No symptoms or risk factors identified. Fall Risk None identified. Assessment: 08/19 23:30 Reassessment: Patient appears in no apparent distress at this time. Patient and/or kr2 family updated on plan of care and expected duration. Pain level reassessed. Patient is alert, oriented x 3, equal unlabored respirations, skin warm/dry/pink. Waiting for IV antibiotics to complete and patient to be discharged. Patient denies pain at this time. 08/20 20:20 General: Appears in no apparent distress. comfortable, well groomed, well developed, kr2 well nourished, Behavior is calm, cooperative, appropriate for age. Pain: Denies pain. 20:20 Neuro: Level of Consciousness is awake, alert, obeys commands, Oriented to person, kr2 place, time, situation, Appropriate for age. Cardiovascular: Capillary refill < 3 seconds in bilateral fingers Patient's skin is warm and dry. Respiratory: Airway is patent Respiratory effort is even, unlabored, Respiratory pattern is regular, symmetrical. GI: Abdomen is flat, non-distended, Bowel sounds present X 4 quads. : Calderon in place to gravity drainage Urine is cayden blood, Penile discharge is cayden blood, Reports feeling like his bladder is full. Denies tenderness or bladder pain. Says he has been having bleeding off and on and has had the catheter irrigated by his urologist previously. It began to get worse about 2 hours ago and he began feeling his bladder filling. EENT: Oral mucosa is moist. Derm: Skin is intact, is healthy with good turgor, Skin is dry, Skin is pale, pink, Skin temperature is warm. Musculoskeletal: Circulation, motion, and sensation intact. Range of motion: intact in all extremities. 21:00 Reassessment: Patient appears in no apparent distress at this time. Patient and/or kr2 family updated on plan of care and expected duration. Pain level reassessed. Patient is alert, oriented x 3, equal unlabored respirations, skin warm/dry/pink. Bladder scan performed, 70mL. 21:20 Reassessment: Patient appears in no apparent distress at this time. Patient and/or kr2 family updated on plan of care and expected duration. Pain level reassessed. Patient is alert, oriented x 3, equal unlabored respirations, skin warm/dry/pink. Bladder irrigation performed using sterile normal saline, irrigated four times, using 60mL at a time and returning 60 mL each time. Returned large clot after first irrigation and progressively became more clear with each irrigation. Patient tolerated well and states he feels like his bladder has emptied. New drainage bag placed to catheter. 22:30 Reassessment: Patient appears in no apparent distress at this time. Patient and/or kr2 family updated on plan of care and expected duration. Pain level reassessed. Patient is alert, oriented x 3, equal unlabored respirations, skin warm/dry/pink. Catheter draining dark yellow urine Patient denies pain at this time. Vital Signs: 20:09 BP 135 / 80; Pulse 70; Resp 18; Temp 98.5; Pulse Ox 97% on R/A; Weight 96.16 kg; Height aj1 5 ft. 11 in. (180.34 cm); Pain 5/10; 23:30 BP 130 / 86; Pulse 77; Resp 16; Pulse Ox 97% on R/A; kr2 20:09 Body Mass Index 29.57 (96.16 kg, 180.34 cm) aj1 ED Course: 19:56 Patient arrived in ED. am2 19:56 Cayden Wayne MD is Private Physician. am2 20:05 Triage completed. aj1 20:09 Arm band placed on Patient placed in an exam room. aj1 20:15 Jamie Rivera MD is Attending Physician. rn 20:25 Inserted saline lock: 22 gauge in right antecubital area, using aseptic technique. kr2 Blood collected. 20:31 Radha Connolly, RN is Primary Nurse. kr2 22:02 Patient has correct armband on for positive identification. Bed in low position. Call kr2 light in reach. Side rails up X 1. Pulse ox on. NIBP on. Door closed. Head of bed elevated. 23:58 No provider procedures requiring assistance completed. IV discontinued, intact, kr2 bleeding controlled, No redness/swelling at site. Pressure dressing applied. Administered Medications: 22:42 Drug: Cipro 400 mg Volume: 200 ml; Route: IVPB; Infused Over: 60 mins; Site: right kr2 antecubital; 23:56 Follow up: Response: No adverse reaction; IV Status: Completed infusion kr2 Outcome: 22:36 Discharge ordered by . rn 23:59 Discharged to home ambulatory, with family. kr2 23:59 Condition: good 23:59 Discharge instructions given to patient, family, Instructed on discharge instructions, follow up and referral plans. medication usage, Demonstrated understanding of instructions, follow-up care, medications, Prescriptions given X 1. 23:59 Patient left the ED. kr2 Addendum: 08/22/2017 08:32 Addendum: Culture Results: Positive urine culture. No further action required. Bacteria s s sensitive to prescribed antibiotic. Signatures: Edith Munoz RN RN aj1 Jamie Rivera MD MD rn Smirch, Shelby, RN RN ss Moreno, Amanda am2 Radha Connolly, RODRIGUEZ RN kr2 Corrections: (The following items were deleted from the chart) 06 21:56 20:20 Pain: Denies pain. kr2 kr2 22:01 21:52 Neuro: Level of Consciousness is awake, alert, obeys commands, Oriented to kr2 person, place, time, situation, Appropriate for age kr2 22:01 21:52 Cardiovascular: Capillary refill < 3 seconds in bilateral fingers Patient's skin kr2 is warm and dry. kr2 22:01 21:52 Respiratory: Airway is patent Respiratory effort is even, unlabored, Respiratory kr2 pattern is regular, symmetrical, kr2 22:01 21:52 GI: Abdomen is flat, non-distended, Bowel sounds present X 4 quads. kr2 kr2 22:01 21:52 : Calderon in place to gravity drainage Urine is cayden blood, Penile discharge is kr2 cayden blood, Reports feeling like his bladder is full. Denies tenderness or bladder pain. Says he has been having bleeding off and on and has had the catheter irrigated by his urologist previously. It began to get worse about 2 hours ago and he began feeling his bladder filling kr2 :04 03:52 EENT: Oral mucosa is moist. kr2 kr2 : 21:52 Derm: Skin is intact, is healthy with good turgor, Skin is dry, Skin is pale, kr2 pink, Skin temperature is warm kr2 :04 03:52 Musculoskeletal: Circulation, motion, and sensation intact. Range of motion: kr2 intact in all extremities, kr2
--- NOTE | 2017-08-20 22:37 | EDPHYS ---
Physician Documentation [facility] Name: Linnette Styles Age: 67 yrs Sex: Male : 1950 Arrival Date: 08/20/2017 Time: 19:56 Bed 24 Private MD: Yvan Wayne ED Physician Jamie Rivera HPI: 08/20 22:29 This 67 yrs old Male presents to ER via Ambulatory with complaints of Blood rn In Catheter. 22:29 The patient presents with a David catheter problem, draining bloody urine. Onset: The rn symptoms/episode began/occurred 1 week(s) ago. Severity of symptoms: At their worst the symptoms were moderate, in the emergency department the symptoms are unchanged. The patient has not experienced similar symptoms in the past. The patient has been recently seen by a physician:. Reports had lung surgery recently at [facility], had david placed, was traumatic, david left in, told by urology that might stop bleeding on own, not on blood thinners. No sob/lightheaded/syncope. . Historical: - Allergies: 20:09 NKA; aj1 - Home Meds: 20:09 clonazepam 0.5 mg Oral tab as needed [Active]; CoQ-10 Oral [Active]; Fish Oil Oral aj1 [Active]; magnesium oxide 250 mg Oral tab nightly [Active]; metoprolol tartrate 100 mg Oral tab 1 tab once daily [Active]; omeprazole 20 mg Oral cpDR 1 cap once daily [Active]; Pradaxa 150 mg Oral cap 1 cap 2 times per day [Active]; prednisone 20 mg Oral tab 1 tab 3 times per day [Active]; Vitamin B-12 1,000 mcg Oral tab [Active]; Vitamin C Oral daily [Active]; gabapentin 300 mg oral cap 1 cap 3 times per day [Active]; celecoxib 200 mg Oral cap 1 cap 2 times per day [Active]; tramadol 50 mg Oral tab 1 tab every 6 hours [Active]; - PMHx: 20:09 Atrial Fib; lung cancer; aj1 - PSHx: 20:09 lobectomy- lower left lobe 08/12/2017; aj1 - Immunization history:: Adult Immunizations up to date. - Social history:: Smoking status: Patient/guardian denies using tobacco. - Ebola Screening: : Patient denies travel to an Ebola-affected area in the 21 days before illness onset. - Family history:: not pertinent. - Hospitalizations: : No recent hospitalization is reported. ROS: 22:34 Constitutional: Negative for fever, chills, and weight loss, Eyes: Negative for injury, rn pain, redness, and discharge, Neck: Negative for injury, pain, and swelling, Cardiovascular: Negative for chest pain, palpitations, and edema, Respiratory: Negative for shortness of breath, cough, wheezing, and pleuritic chest pain, Abdomen/GI: Negative for abdominal pain, nausea, vomiting, diarrhea, and constipation, : + blood in catheter MS/Extremity: Negative for injury and deformity, Neuro: Negative for headache, weakness, numbness, tingling, and seizure. Exam: 22:34 Constitutional: This is a well developed, well nourished patient who is awake, alert, rn and in no acute distress. Abdomen/GI: Soft, non-tender, with normal bowel sounds. No distension or tympany. No guarding or rebound. No evidence of tenderness throughout. Male : + bloody urine in david bag Vital Signs: 20:09 BP 135 / 80; Pulse 70; Resp 18; Temp 98.5; Pulse Ox 97% on R/A; Weight 96.16 kg; Height aj1 5 ft. 11 in. (180.34 cm); Pain 5/10; 23:30 BP 130 / 86; Pulse 77; Resp 16; Pulse Ox 97% on R/A; kr2 20:09 Body Mass Index 29.57 (96.16 kg, 180.34 cm) aj1 MDM: 20:16 Patient medically screened. rn 22:34 Differential diagnosis: UTI, urinary retention, David catheter problem. Data reviewed: rn vital signs, nurses notes, lab test result(s), and as a result, I will discharge patient. Counseling: I had a detailed discussion with the patient and/or guardian regarding: the historical points, exam findings, and any diagnostic results supporting the discharge/admit diagnosis, the need for outpatient follow up, to return to the emergency department if symptoms worsen or persist or if there are any questions or concerns that arise at home. Response to treatment: the patient's symptoms have markedly improved after treatment, and as a result, I will discharge patient. Special discussion: I discussed with the patient/guardian in detail that at this point there is no indication for admission to the hospital. It is understood, however, that if the symptoms persist or worsen the patient needs to return immediately for re-evaluation. Based on the history and exam findings, there is no indication for further emergent testing or inpatient evaluation. I discussed with the patient/guardian the need to see the urologist for further evaluation of the symptoms. ED course: Bleeding has cleared, h/h stable, normal vitals, will dc home with abx for UTI, IV abx given here, likely exacerbating bleeding, has f/u with his urologist.. 08/20 20:25 Order name: CBC with Diff; Complete Time: 22:29 rn 08/20 20:25 Order name: Basic Metabolic Panel; Complete Time: 22:29 rn 08/20 20:25 Order name: Protime (+inr); Complete Time: 22:29 rn 08/20 20:25 Order name: Ptt, Activated; Complete Time: 22:29 rn 08/20 20:25 Order name: Urine Culture rn 08/20 21:43 Order name: Urine Dipstick--Ancillary (enter results) rg2 08/20 20:25 Order name: Urine Dipstick-Ancillary (obtain specimen); Complete Time: 21:51 rn 08/20 20:25 Order name: Bladder Scanner; Complete Time: 21:23 rn 08/20 20:25 Order name: Bladder Irrigation; Complete Time: 21:23 rn 08/20 20:25 Order name: IV Start; Complete Time: 21:23 rn Administered Medications: 22:42 Drug: Cipro 400 mg Volume: 200 ml; Route: IVPB; Infused Over: 60 mins; Site: right kr2 antecubital; 23:56 Follow up: Response: No adverse reaction; IV Status: Completed infusion kr2 Disposition: 08/20/17 22:36 Discharged to Home. Impression: Hematuria, unspecified. - Condition is Stable. - Discharge Instructions: Hematuria, Adult, Urinary Tract Infection. - Prescriptions for Cipro 500 mg Oral Tablet - take 1 tablet by ORAL route every 12 hours for 10 days; 20 tablet. - Medication Reconciliation Form, Thank You Letter, Antibiotic Education, Prescription Opioid Use form. - Follow up: Private Physician; When: As needed; Reason: Recheck today's complaints, Re-evaluation by your physician. - Problem is new. - Symptoms have improved. Signatures: Dispatcher [employer] EDEdith Ruano RN RN aj1 Jamie Rivera MD MD rn Reaves, Karey, RN RN kr2 Corrections: (The following items were deleted from the chart) 23:59 22:36 08/20/2017 22:36 Discharged to Home. Impression: Hematuria, unspecified. kr2 Condition is Stable. Forms are Medication Reconciliation Form, Thank You Letter, Antibiotic Education, Prescription Opioid Use. Follow up: Private Physician; When: As needed; Reason: Recheck today's complaints, Re-evaluation by your physician. Problem is new. Symptoms have improved. rn
[2017-08-20 23:11] LABS: Urine Blood 3+ (NEG); Urine Glucose NEGATIVE (NEG); Urine Protein 3+ (NEG)
== END 2017-08-20 23:59 | disposition home or self-care (01) ==
LOC: ER 19:55
DX: R31.9 Hematuria, unspecified (principal); I48.91 Unspecified atrial fibrillation; Z85.118 Personal history of other malignant neoplasm of bronchus and lung; Z98.890 Other specified postprocedural states
CPT/HCPCS: 36415; 80048; 81003; 85025; 85610; 85730; 87077; 87086; 87088; 87186; 96365; 99284; J0744